=== PATIENT | male | born 1980 | race Caucasian/White ===

== ENCOUNTER 2018-09-25 14:14 | Emergency (ER) | payer OTHER ==
[~2018-09-25] VITALS: Ht 170.2 cm; Wt 95.3 kg
[~2018-09-25 14:14] MED LIST: PERCOCET 5-3251 EACH PO; SULFACETAMIDE 115 M1 OP
[2018-09-25 17:25] VITALS: BP 135/89
== END 2018-09-25 17:27 | disposition home or self-care (01) ==
LOC: M.ERS 14:14
DX: F23 Brief psychotic disorder (principal); F17.210 Nicotine dependence, cigarettes, uncomplicated; Z91.041 Radiographic dye allergy status; Z91.013 Allergy to seafood